=== PATIENT | female | born 1975 | race American Indian/Alaskan Native ===

== ENCOUNTER 2022-11-28 01:54 | Emergency (ER) | payer OTHER ==
[2022-11-28 02:02] VITALS: TEMP 98.8
[2022-11-28 02:19] LABS: Absolute Neutrophil Ct (ANC) 7.88 x10^3/uL (1.4-6.9); BASOPHIL % 0.8 % (0.0-0.4); Basophil (Absolute #) 0.09 x10^3/uL (0-0.4); Eosinophil % 2.8 % (0.00-5.0); Eosinophil (Absolute #) 0.32 x10^3/uL (0-0.5); Hematocrit 38.6 % (35-47); Hemoglobin 12.2 g/dL (12.0-16.0); IMMATURE GRAN # 0.05 x10^3u/L (0.00-0.03); IMMATURE GRAN % 0.4 % (0.00-0.4); Lymphocyte (Absolute #) 2.56 x10^3/uL (1.0-4.6); Mean Cell Volume 89.1 fL (78-100); Mean Corpuscular Hemoglobin 28.2 pg (26-32); Mean Corpuscular Hgb Concent. 31.6 g/dL (32-36); Mean Platelet Volume 9.7 fL (7.5-11.0); Monocyte (Absolute #) 0.71 x10^3/uL (0.0-1.3); Monocytes % 6.1 % (0.0-12.0); Neutrophil % 67.9 % (36.0-66.0); Platelet Count 319 x10^3/uL (150-450); Red Blood Count 4.33 x10^6/uL (4.1-5.4); Red Cell Distribution Width 13.4 % (11.5-14.0); White Blood Count 11.6 x10^3/uL (4.0-10.5)
[2022-11-28 02:31] LABS: ALBUMIN 3.7 g/dL (3.5-5.0); ALKALINE PHOSPHATASE 71 U/L (38-126); ANION GAP 11.4 MEQ/L (5-15); BLOOD UREA NITROGEN 15 mg/dL (7-17); CHLORIDE 102 mmol/L (98-107); Calcium 8.7 mg/dL (8.4-10.2); Carbon Dioxide 27 mmol/L (22-30); Creatinine 1 0.73 mg/dL (0.52-1.04); EST GLOMERULAR FILTRATION RATE > 60.0 ML/MIN; Glucose 184 mg/dL (74-106); Potassium 4.5 mmol/L (3.5-5.1); SGOT/AST 37 U/L (14-36); SGPT/ALT 24 U/L (0-35); SODIUM 136 mmol/L (137-145); Total Protein 6.8 g/dL (6.3-8.2)
[2022-11-28 03:18] LABS: Appearance Clear (Clear); Bacteria None Seen /HPF (None Seen); Bilirubin Negative (Negative); Blood Negative (Negative); Epithelial Cells Moderate /HPF (None Seen); Glucose, Urine Negative (Negative); Hyaline Casts NONE SEEN /LPF (0-2); Ketones Negative (Negative); Leukocyte Esterase Small (Negative); Nitrite Negative (Negative); Protein,Urine Dip Negative (Negative); RBC 0-2 /HPF (0-5); Urobilinogen 0.2 mg/dL (0.2)
[2022-11-28 03:29] LABS: Barbiturate,Urine NEGATIVE (NEGATIVE); Benzodiazepine,Urine NEGATIVE (NEGATIVE); Cocaine,Urine NEGATIVE (NEGATIVE); Methadone,Urine NEGATIVE (NEGATIVE); Opiate,Urine NEGATIVE (NEGATIVE); PCP,Urine NEGATIVE (NEGATIVE); THC,Urine POSITIVE (NEGATIVE)
[2022-11-28 03:29] LABS: ADD URINE CULTURE? YES (NO)
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
[2022-11-28 03:46] LABS: Amphetamine,Urine POSITIVE (NEGATIVE)
--- NOTE | 2022-11-28 04:24 | XRAY ---
CLINICAL HISTORY:trauma COMPARISON:None. TECHNIQUE:Axial non-enhanced CT scan of the brain was performed from the skull base to the high parietal region. Coronal and sagittal reconstruction images were also obtained. FINDINGS: [place] and white matter differentiation is intact. The visualized brain parenchyma shows normal appearance. No established infarction, intracranial, or extra cerebral hemorrhage. No hydrocephalus, midline shifts, or mass effect. Normal size and configuration of the cerebral ventricles. Normal cerebellar hemispheres and brainstem. Cerebellopontine angles are clear. The pituitary gland and both orbits are normal. The osseous structures in the skull base are unremarkable. No definite calvarium fractures. Scan paranasal sinuses are clear. IMPRESSION: 1. No evidence of established infarction, intracranial or extracranial hemorrhage. 2. No obvious calvarium fracture is identified. Electronically Signed by: Bree Blue MD. (11/28/2022 03:22:22 RESTORATIVE CARE TECHNICIAN)
--- NOTE | 2022-11-28 04:34 | XRAY ---
CLINICAL HISTORY:trauma COMPARISON:None TECHNIQUE:Contiguous axial CT images of the chest were acquired with the administration of 80 cc Isovue 370 intravenous contrast. Coronal and sagittal reconstructions were obtained. FINDINGS: The scanned pulmonary parenchyma shows no definite consolidative lesions. No free or encysted pleural effusion. Heart size is normal, and there is no pericardial effusion. No pathologically enlarged mediastinal, hilar, or axillary lymph node was identified. Normal enhancing mediastinal vessels. In an included section of the upper abdomen, multiple calcified granulomas were seen in the splenic parenchyma. Surgical susan are seen at the gallbladder fossa. Mild degenerative changes were seen in the visualized thoracic spine. No obvious fracture of the visualized bones. IMPRESSION: No active cardiopulmonary pathology. Electronically Signed by: Bree Blue MD. (11/28/2022 03:32:50 TOBACCO STRIPPER)
--- NOTE | 2022-11-28 04:52 | XRAY ---
CLINICAL HISTORY:trauma COMPARISON:None TECHNIQUE:Continuous axial CT images of the cervical spine were obtained without contrast. Coronal and sagittal reconstruction images were also obtained. FINDINGS: Alignment and osseous structures: Preserved physiological cervical lordosis. No obvious fracture of cervical vertebrae or dislocation. Mild degenerative changes were identified along the articular margin of cervical vertebrae at the C5-C6 level. The vertebral bodies are normal in height. No lytic or sclerotic bone lesion. The craniovertebral measures are unremarkable. Intervertebral disc spaces are intact. IMPRESSION: 1. Loss of cervical lordosis likely due to muscular spasm. 2. No obvious fracture of cervical vertebrae or dislocation. 3. Mild cervical spondylosis at C5-C6 level. Electronically Signed by: Bree Blue MD. (11/28/2022 03:52:11 WORKFORCE MANAGEMENT CONSULTANT)
--- NOTE | 2022-11-28 04:56 | XRAY ---
CLINICAL HISTORY:trauma COMPARISON:None TECHNIQUE:CT scan of facial bones were obtained without intravenous contrast enhancement. Imaging was performed on the multi-slice scanner and reporting was done at the workstation. Total DLP is 713mgy-cm and to CTDI is 40.2mgy. FINDINGS: No fracture was seen involving facial bones. No soft tissue abnormality was noted. Normal both temporomandibular joint. No fracture or dislocation was seen. Normal orbits bilaterally. The skull base and calvarium are unremarkable. Normal visualized paranasal sinuses. Normal pneumotization of mastoid bone. Mild degenerative changes noted in visualized cervical spine IMPRESSION: 1. No definite fracture or soft tissue injury is appreciated. 2. Unremarkable CT facial bones. Electronically Signed by: Bree Blue MD. (11/28/2022 03:55:17 RECRUITMENT MANAGER)
--- NOTE | 2022-11-28 04:56 | XRAY ---
CLINICAL HISTORY:trauma COMPARISON:None TECHNIQUE:CT scan of the abdomen and pelvis was performed with IV contrast.; Coronal and sagittal reconstructive images were also obtained. FINDINGS: Abdomen: Liver is normal in size, shape. Diffuse decreased parenchymal attenuation. No focal or diffuse parenchymal abnormality. The portal vein, intrahepatic biliary radicals and the bile ducts are normal. The spleen, pancreas, adrenal glands are unremarkable. Multiple calcific foci are seen involving the spleen. The kidneys are unremarkable. They are normal in size and shape. No calculi or hydronephrosis. The gallbladder is not visualised. Post cholecystectomy status. The ascending colon, the transverse colon, the descending colon, visualized small bowel loops are unremarkable. There is no evidence of significant enlargement of the mesenteric or retroperitoneal lymph nodes. Fecal loaded large bowel loops noted. Pelvis: The urinary bladder is unremarkable. The rectosigmoid colon is unremarkable. The pelvic vasculature is unremarkable. No evidence of pelvic lymphadenopathy. The osseous structures in the pelvis, lower rib cage and lumbar spine show no abnormality. No lytic or sclerotic bone lesions. Visualised vertebrae shows degenerative changes. Aortic wall calcification noted. IMPRESSION: No significant abnormality seen in the present study. Electronically Signed by: Bree Blue MD. (11/28/2022 03:55:17 RUBBER STAMP DIES INSPECTOR)
[2022-11-28 06:03] VITALS: RESP 22
[2022-11-28] MEDS ORDERED: Macrobid 100MG Capsule ONE (06:45)
[2022-11-28] MEDS: Macrobid 100MG Capsule PO ONE (06:45)
[2022-11-28 06:50] VITALS: O2SAT 97
[2022-11-28 06:54] VITALS: BP 145/92; PULSE 94
== END 2022-11-28 07:02 | disposition home or self-care (01) ==
LOC: ED 01:54
DX: Z04.1 Encounter for examination and observation following transport accident (principal); N39.0 Urinary tract infection, site not specified; F15.90 Other stimulant use, unspecified, uncomplicated; F12.90 Cannabis use, unspecified, uncomplicated; M25.552 Pain in left hip; E78.5 Hyperlipidemia, unspecified; E11.9 Type 2 diabetes mellitus without complications; Z79.84 Long term (current) use of oral hypoglycemic drugs; Z79.899 Other long term (current) drug therapy; Z28.310 Unvaccinated for COVID-19; Z72.0 Tobacco use
CPT/HCPCS: 36000; 36415; 70450; 70486; 71260; 72125; 74177; 80053; 80307; 81001; 82077; 84484; 85025; 87086; 99285; A9270-GY